=== PATIENT | male | born 1945 | race Caucasian/White ===

== ENCOUNTER 2018-10-10 08:02 | Inpatient (IN) ==
[2018-10-10] MEDS ORDERED: 0.9 % Sodium Chloride 1,000 ML IVC ONE (08:41)
--- NOTE | 2018-10-10 08:45 | Emergency Department Note ---
Disposition Clinical Impression: Weakness, History of lung cancer, History of diarrhea Disposition: Admitted As Inpatient Condition: Good Time of Disposition: 10:34 Weakness HPI - General Chief complaint: ED Weakness Stated complaint: weakness Time Seen by Provider: 10/10/18 08:25 Source: patient, family, EMS Limitations: no limitations Nursing Notes Reviewed: Yes Vital Signs Reviewed: Yes - History of Present Illness HPI Narrative: Mr. Ramirez went to get up today and he did not have strength to get out of bed [facility] His cancer doctor yesterday was also feeling very weak and had 750 ML's of fluids which she tolerated well and felt better temporarily. He has not been eating and drinking well because of no appetite and occasional nausea. He has had diarrhea for about a day and a half no blood in the stool no ill contacts with similar symptoms. His immunotherapy for lung cancer has been postponed at least a week secondary to the symptoms. No fevers no chills no headache no vision change no sore throat no cough no shortness of breath no chest pain no abdominal pain no urinary symptoms no muscle aches. The right leg seems to be a little more weak than the other but this is been the case for several weeks now. No trauma to the leg. No numbness or tingling in any extremity. Pain Scale: 0 Improves with: none Worsens with: none Associated symptoms: Reports: denies other symptoms - Related Data Home Medications Medication Instructions Recorded Confirmed Aspirin [Lo-Dose Aspirin EC] 81 mg PO DAILY 12/07/17 10/10/18 Flaxseed Oil [[place]-3 Flaxseed Oil] 1 cap PO DAILY 12/07/17 10/10/18 Folic Acid [FA-8] 0.8 mg PO DAILY 12/07/17 10/10/18 Garlic 1,000 mg PO DAILY 12/07/17 10/10/18 [place]-3 Fatty Acids [Fish Oil 1,000 mg PO DAILY 12/07/17 10/10/18 Concentrate] Cholecalciferol (D-3) [Vitamin D] 1,000 unit PO DAILY 03/03/18 10/10/18 Losartan [Cozaar] 12.5 mg PO DAILY 09/01/18 10/10/18 Sodium Bicarbonate 650 mg PO DAILY 10/10/18 10/10/18 Previous Rx's Medication Instructions Recorded Promethazine [Phenergan] 25 mg PO Q6HR PRN #30 tablet 12/30/17 Albuterol Sulfate [Albuterol 1 puff IH Q4HR #1 hfa.aer.ad 01/21/18 Inhaler] Magic Mouthwash [Magic Mouthwash 10 ml PO QID PRN #240 ml 07/17/18 BLM] Dronabinol [Marinol] 5 mg PO BID 30 Days #60 capsule 08/17/18 Lactulose 20 gm PO BID #1 bottle 09/18/18 Allergies Allergy/AdvReac Type Severity Reaction Status Date / Time [id number] Reductase Allergy See Verified 09/18/18 09:27 Inhibitor Comments [Statins] All systems ED: reviewed and negative except as stated. Constitutional: Reports: weakness. Denies: fever, chills Eyes: Denies: vision change ENT ED: Denies: throat pain Cardiovascular: Denies: chest pain, dyspnea on exertion Respiratory: Denies: cough, dyspnea Gastrointestinal: Reports: nausea, diarrhea. Denies: abdominal pain, vomiting Genitourinary: Reports: as per HPI Musculoskeletal: Denies: myalgia Integumentary: Denies: rash Neurological: Reports: weakness. Denies: headache, numbness, paresthesias Endocrine: Reports: fatigue Hematological/Lymphatic: Denies: easy bleeding, easy bruising Past Medical History - Past Medical History Attestation: Yes The following information was validated with the patient. Source: patient, nursing notes reviewed Medical history: Reports: cancer, hypertension, myocardial infarction Surgical history: Reports: non-contributory Psychiatric history: Reports: no psych history - Social History Smoking Status: Current some day smoker Smokeless Tobacco Status: No Alcohol use: Reports: none Drug use: Reports: none Physical Exam - General Limitations: no limitations General appearance: alert, in no apparent distress - Head Head exam: atraumatic, normocephalic, normal inspection - Eye Eye exam: Present: normal appearance, PERRL, EOMI. Absent: scleral icterus - ENT ENT exam: normal oropharynx, mucous membranes moist, TM's normal bilaterally, normal external ear exam - Neck Neck exam: Present: normal inspection. Absent: lymphadenopathy - Chest Chest inspection: Present: normal inspection, symmetric chest wall rise - Respiratory Respiratory exam: Present: normal lung sounds bilaterally. Absent: respiratory distress, wheezes, stridor, accessory muscle use - Cardiovascular Cardiovascular exam: Present: normal rhythm, bradycardia, normal heart sounds - Abdominal Exam Abdominal exam: Present: soft, Non-Tender - Extremities Exam Extremities exam: Present: normal inspection. Absent: pedal edema - Neurological Exam Neurological exam: Present: alert, CN II-XII intact, motor sensory deficit (Cooler Man strength and hip flexors bilaterally 4/5 strength) - Psychiatric Psychiatric exam: Present: normal affect, normal mood - Skin Skin exam: Present: warm, dry Course Vital Signs Temperature 98.4 F 10/10/18 08:15 Pulse Rate 46 10/10/18 08:15 Respiratory Rate 15 10/10/18 08:15 Blood Pressure 187/75 10/10/18 08:15 O2 Sat by Pulse Oximetry 96 10/10/18 08:15 Temperature 97.5 F L 10/12/18 07:40 Pulse Rate 45 10/12/18 07:40 Respiratory Rate 14 10/12/18 07:40 Blood Pressure 192/77 10/12/18 07:40 O2 Sat by Pulse Oximetry 96 10/12/18 07:40 Oxygen Delivery Oxygen Delivery Room Air Weakness - MDM Narrative Medical decision making narrative: Weakness. We will do a general workup to identify any lab abnormalities that might explain his symptoms. Further he is rather debilitated and could have a subclinical pneumonia or urinary tract infection. In the meantime we will hydrate him. He is not feeling nauseous at the time of our interview. Case was discussed with oncoming physician at shift change. Disposition forthcoming. I reviewed the previous documentation, talked with the patient and family, reviewed the laboratory studies. I discussed the case with Dr. Arias who is graciously agreed to keep the patient in the hospital - Medical Records Medical records reviewed: Yes I reviewed the patient's medical records. - Lab Data Lab results reviewed: Yes I reviewed the patient's lab results. Result diagrams: 10/11/18 04:29 10/12/18 05:45 Lab Results 10/10/18 10/10/18 10/10/18 Range/Units 09:03 09:03 09:13 WBC 4.1 L (4.3-11.1) K/mcL RBC 3.84 L (4.19-5.50) M/mcL Hgb 12.0 L (12.9-16.9) g/dL Hct 35.0 L (37.5-50.1) % MCV 91.1 (83.0-100.0) fL MCH 31.3 (28.0-33.3) pg MCHC 34.3 (31.6-35.5) g/dL RDW 12.1 (11.5-14.5) % Plt Count 181 (140-400) K/mcL MPV 9.1 L (9.4-12.4) fL Immature Gran % 0.5 (0-4) % Seg Neutrophils % 74.0 % Lymphocytes % 10.6 % Monocytes % 12.8 % Eosinophils % 1.4 % Basophils % 0.7 % Neutrophils # 3.0 (1.6-8.9) K/mcL Lymphocytes # 0.4 L (0.6-4.6) K/mcL Monocytes # 0.5 (0.0-1.3) K/mcL Eosinophils # 0.1 (0.0-0.6) K/mcL Basophils # 0.0 (0.0-0.2) K/mcL Sodium 132 L (136-145) mEq/L Potassium 3.2 L (3.5-5.1) mEq/L Chloride 95 L (98-107) mEq/L Carbon Dioxide 31 H (23-29) mEq/L BUN 9 (8-23) mg/dL Creatinine 0.70 (0.70-1.30) mg/dL Est GFR ( Amer) > 60 (> 60) Est GFR (Non-Af Amer) > 60 (> 60) BUN/Creatinine Ratio 13 (6-26) Glucose 112 H (70-105) mg/dL Calculated Osmolality 273 L (280-300) Calcium 9.4 (8.6-10.3) mg/dL Magnesium 2.1 (1.6-2.6) mg/dL Total Bilirubin 0.8 (0.3-1.0) mg/dL AST 18 (13-39) Units/L ALT 16 (7-52) Units/L Alkaline Phosphatase 72 (34-104) Units/L Troponin I < 0.03 (< 0.04) ng/mL Serum Total Protein 5.9 L (6.4-8.9) g/dL Albumin 4.1 (3.5-5.7) g/dL Globulin 1.8 L (2.4-3.5) g/dL Albumin/Globulin Ratio 2.3 H (1.1-2.2) Urine Color (Yellow) Urine Clarity (Clear) Urine pH (5.0-8.0) pH Units Ur Specific [place] (1.010-1.025) Urine Protein (Neg-Trace) mg/dL Urine Glucose (UA) (Normal) mg/dL Urine Ketones (Negative) mg/dL Urine Blood (Negative) Urine Nitrite (Negative) Urine Bilirubin (Negative) Urine Urobilinogen (Normal) mg/dL Ur Leukocyte Esterase (Negative) Ur Culture Indicated? (NO) 10/10/18 Range/Units 10:13 WBC (4.3-11.1) K/mcL RBC (4.19-5.50) M/mcL Hgb (12.9-16.9) g/dL Hct (37.5-50.1) % MCV (83.0-100.0) fL MCH (28.0-33.3) pg MCHC (31.6-35.5) g/dL RDW (11.5-14.5) % Plt Count (140-400) K/mcL MPV (9.4-12.4) fL Immature Gran % (0-4) % Seg Neutrophils % % Lymphocytes % % Monocytes % % Eosinophils % % Basophils % % Neutrophils # (1.6-8.9) K/mcL Lymphocytes # (0.6-4.6) K/mcL Monocytes # (0.0-1.3) K/mcL Eosinophils # (0.0-0.6) K/mcL Basophils # (0.0-0.2) K/mcL Sodium (136-145) mEq/L Potassium (3.5-5.1) mEq/L Chloride (98-107) mEq/L Carbon Dioxide (23-29) mEq/L BUN (8-23) mg/dL Creatinine (0.70-1.30) mg/dL Est GFR ( Amer) (> 60) Est GFR (Non-Af Amer) (> 60) BUN/Creatinine Ratio (6-26) Glucose (70-105) mg/dL Calculated Osmolality (280-300) Calcium (8.6-10.3) mg/dL Magnesium (1.6-2.6) mg/dL Total Bilirubin (0.3-1.0) mg/dL AST (13-39) Units/L ALT (7-52) Units/L Alkaline Phosphatase (34-104) Units/L Troponin I (< 0.04) ng/mL Serum Total Protein (6.4-8.9) g/dL Albumin (3.5-5.7) g/dL Globulin (2.4-3.5) g/dL Albumin/Globulin Ratio (1.1-2.2) Urine Color Yellow (Yellow) Urine Clarity Clear (Clear) Urine pH 8.5 H (5.0-8.0) pH Units Ur Specific [place] 1.015 (1.010-1.025) Urine Protein Trace (Neg-Trace) mg/dL Urine Glucose (UA) Normal (Normal) mg/dL Urine Ketones Negative (Negative) mg/dL Urine Blood Negative (Negative) Urine Nitrite Negative (Negative) Urine Bilirubin Negative (Negative) Urine Urobilinogen Normal (Normal) mg/dL Ur Leukocyte Esterase Negative (Negative) Ur Culture Indicated? NO (NO) - Radiology Data Radiology results reviewed: Yes I reviewed the patient's radiology results.
[2018-10-10 09:21] LABS: Basophils % 0.7 %; Eosinophils # 0.1 K/mcL (0.0-0.6); Eosinophils % 1.4 %; Immature Granulocytes % 0.5 % (0-4); Lymphocytes # 0.4 K/mcL (0.6-4.6); Lymphocytes % 10.6 %; Mean Corpuscular HGB Conc 34.3 g/dL (31.6-35.5); Mean Corpuscular Hemoglobin 31.3 pg (28.0-33.3); Mean Corpuscular Volume 91.1 fL (83.0-100.0); Mean Platelet Volume 9.1 fL (9.4-12.4); Monocytes # 0.5 K/mcL (0.0-1.3); Monocytes % 12.8 %; Platelet Count 181 K/mcL (140-400); Red Blood Count 3.84 M/mcL (4.19-5.50); Red Cell Distribution Width 12.1 % (11.5-14.5); White Blood Count 4.1 K/mcL (4.3-11.1)
[2018-10-10 09:37] LABS: Alanine Aminotransferase 16 Units/L (7-52); Albumin 4.1 g/dL (3.5-5.7); Albumin/Globulin Ratio 2.3 (1.1-2.2); Alkaline Phosphatase 72 Units/L (34-104); Aspartate Amino Transferase 18 Units/L (13-39); BUN/Creatinine Ratio 13 (6-26); Bilirubin,Total 0.8 mg/dL (0.3-1.0); Blood Urea Nitrogen 9 mg/dL (8-23); Calcium 9.4 mg/dL (8.6-10.3); Carbon Dioxide 31 mEq/L (23-29); Chloride 95 mEq/L (98-107); Globulin 1.8 g/dL (2.4-3.5); Glucose 112 mg/dL (70-105); Magnesium 2.1 mg/dL (1.6-2.6); Osmolality,Calculated 273 (280-300); Potassium 3.2 mEq/L (3.5-5.1); Sodium 132 mEq/L (136-145); Total Protein 5.9 g/dL (6.4-8.9); eGFR For African Americans > 60 (> 60); eGFR For Non-African Americans > 60 (> 60)
[2018-10-10 10:21] LABS: Bilirubin,Urine Negative (Negative); Clarity,Urine Clear (Clear); Color,Urine Yellow (Yellow); Glucose,Urine (UA) Normal (Normal); Ketones,Urine Negative (Negative); Leukocyte Esterase,Urine Negative (Negative); Nitrite,Urine Negative (Negative); PH,Urine 8.5 pH Units (5.0-8.0); Protein,Urine Trace mg/dL (Neg-Trace); Specific Gravity,Urine 1.015 (1.010-1.025); Urobilinogen,Urine Normal (Normal)
[2018-10-10 10:22] LABS: Blood,Urine Negative (Negative)
[2018-10-10] MEDS ORDERED: Naloxone 0.4 MG/ML INJ IVP PRN (11:24)
[2018-10-10] MEDS ORDERED: 0.9 % Sodium Chloride 1,000 ML IVC SCH ×2 (11:24→13:14)
[2018-10-10] MEDS ORDERED: Magic Mouthwash 10 ML UD Cup PO PRN (11:24)
--- NOTE | 2018-10-10 11:34 | Internal Med History&Physical ---
Date of Encounter: 10/10/18 Time of Encounter: 11:31 Assessment and Plan (1) Dehydration Current visit: Yes Status: Acute weakness and mild dehydration , low sodium and K levels overall side effects of immunotherpay as well IV fluids and followup no evideve of infection so far . H/H stable , WBC mildly low afebrile (2) Weakness Current visit: Yes Status: Acute Weakness is generalized Orthostatics and IV fluids and followup . No obvious sign of infection (3) History of lung cancer Current visit: Yes Status: Acute getting Immunotherpay Stage 3 or 4 with mets. Stable at the present time but overall prognosis is poor (4) Hyponatremia Current visit: No Status: Acute (5) HTN (hypertension) Current visit: No Status: Chronic if orthostatic will decrease his meds and followup Qualifiers: Hypertension type: essential hypertension Qualified Code(s): I10 - Essential (primary) hypertension Internal Medicine - H&P: HPI Admitted From: Emergency Dept History of present illness: Mr. 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 he denied any fever or chill ,nausea vomiting , appetite is poor . 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 Psychiatric history: no psych history - Past Surgical History Surgical History: non-contributory Additional surgical history: LEFT FOOT SX, LEFT HIP FX - Social History Smoking Status: Current some day smoker Smokeless Tobacco Status: No Alcohol use: none Drug use: none Internal Medicine - H&P: Meds Aspirin [Lo-Dose Aspirin EC] 81 mg PO DAILY 12/07/17 [History] Flaxseed Oil [[place]-3 Flaxseed Oil] 1 cap PO DAILY 12/07/17 [History] Folic Acid [FA-8] 0.8 mg PO DAILY 12/07/17 [History] Garlic 1,000 mg PO DAILY 12/07/17 [History] [place]-3 Fatty Acids [Fish Oil Concentrate] 1,000 mg PO DAILY 12/07/17 [History] Promethazine [Phenergan] 25 mg PO Q6HR PRN #30 tablet 12/30/17 [Rx] OLANZapine [Zyprexa] 10 mg PO DAILY #28 tablet 01/07/18 [Rx] Albuterol Sulfate [Albuterol Inhaler] 1 puff IH Q4HR #1 hfa.aer.ad 01/21/18 [Rx] Hydrocortisone [Anusol-Hc] 30 gm TP DAILY #6 [email or web address] 01/21/18 [Rx] Cholecalciferol (D-3) [Vitamin D] 1,000 unit PO DAILY 03/03/18 [History] Magic Mouthwash [Magic Mouthwash BLM] 10 ml PO QID PRN #240 ml 07/17/18 [Rx] Dronabinol [Marinol] 5 mg PO BID 30 Days #60 capsule 08/17/18 [Rx] Losartan [Cozaar] 12.5 mg PO DAILY 09/01/18 [History] Lactulose 20 gm PO BID #1 bottle 09/18/18 [Rx] Allergy/AdvReac Type Severity Reaction Status Date / Time [id number]-[id number] Reductase Allergy See Verified 09/18/18 09:27 Inhibitor Comments [Statins] All Systems PM: A 10-system review of systems was performed and is negative for pertinent findings except as documented above in the HPI. - Constitutional Constitutional: fatigue, lethargy, malaise, weakness, no anorexia, no chills, no excessive sweating, no fever(s), no falls, no night sweats, no weight gain, no weight loss - EENT Eyes: no blurry vision, no diplopia, no itchy eyes, no loss of vision, no photophobia, no seeing flashes Nose, mouth and throat: no bleeding gums, no dysphagia, no epistaxis, no facial pain, no mouth lesions, no odynophagia, no post-nasal drip, no sore throat - Cardiovascular Cardiovascular ROS IM: lightheadedness, no chest pain, no claudication, no diaphoresis, no dyspnea, no dyspnea on exertion, no edema, no orthopnea, no palpitations, no paroxysmal nocturnal dyspnea, no syncope - Respiratory Respiratory: no cough, no dyspnea, no hemoptysis, no dyspnea on exertion, no wheezing, no snoring, no stridor, no pain on inspiration, no chest congestion, no excessive phlegm production, no pain with cough - Gastrointestinal Gastrointestinal: constipation, no abdominal pain, no change in bowel habits, no fecal incontinence, no heartburn, no hematemesis, no melena, no nausea, no odynophagia, no tenesmus, no vomiting - Genitourinary Genitourinary ROS male: no difficulty urinating, no flank pain, no nocturia, no urinary frequency, no urinary hesitancy, no urinary incontinence - Musculoskeletal Musculoskeletal ROS IM: no arthralgias, no atrophy, no back pain, no joint swelling, no muscle cramps - Neurological Neurological ROS: weakness, no abnormal gait, no burning sensations, no confusion, no convulsions, no disequilibrium, no dizziness, no focal weakness, no frequent falls, no lack of coordination, no loss of vision, no memory loss, no tremor(s), no vertigo - Constitutional Vitals: Temp Pulse Resp BP Pulse Ox 98.4 F 47 16 192/58 98 10/10/18 08:15 10/10/18 10:17 10/10/18 11:13 10/10/18 11:13 10/10/18 10:17 General appearance: Present: A&O X 3, pleasant, no acute distress, answers questions appropriately - Head Head exam: Present: atraumatic - Eye Eye exam: Present: EOMI, PERRL. Absent: scleral icterus - Neck Neck exam general surgery: Present: full ROM. Absent: lymphadenopathy, tenderness, nuchal rigidity, supple - Respiratory Respiratory exam: Present: CTAB. Absent: accessory muscle use, chest wall tenderness, decreased breath sounds, respiratory distress, rhonchi, stridor, tachypnea Additional comments: mild basal crackles on the left lower lung noted otherwise clear - Cardiovascular Cardiovascular exam: Present: RRR, +S1, +S2. Absent: irregular rhythm, JVD, systolic murmur, tachycardia - GI/Abdominal GI/Abdominal exam: Present: normal bowel sounds, soft. Absent: diminished bowel sounds, distended, guarding, rigid Additional comments: no tenderness on the right upper quadrant - Extremities Exam Extremities exam: Absent: pedal edema, tenderness, warm - Back Exam Back exam: Absent: muscle spasm, normal inspection, rash noted, tenderness, vertebral tenderness - Neurological Exam Neurological exam: Present: CN II-XII intact, oriented X3, no focal deficits, strengths equal and symetr throughout. Absent: pronater drift, facial droop, speech deficit Internal Med - H&P Results - Labs CBC & Chem 7: 10/10/18 09:03 10/10/18 09:03 Labs: Short CBC 10/10/18 Range/Units 09:03 WBC 4.1 L (4.3-11.1) K/mcL Hgb 12.0 L (12.9-16.9) g/dL Hct 35.0 L (37.5-50.1) % Plt Count 181 (140-400) K/mcL Neutrophils # 3.0 (1.6-8.9) K/mcL BMP 10/10/18 09:03 Sodium 132 L Potassium 3.2 L Chloride 95 L Carbon Dioxide 31 H BUN 9 Creatinine 0.70 Glucose 112 H Calcium 9.4 Cardiac Enzymes 10/10/18 Range/Units 09:13 Troponin I < 0.03 (< 0.04) ng/mL Liver Function 10/10/18 Range/Units 09:03 Total Bilirubin 0.8 (0.3-1.0) mg/dL AST 18 (13-39) Units/L ALT 16 (7-52) Units/L Alkaline Phosphatase 72 (34-104) Units/L Albumin 4.1 (3.5-5.7) g/dL Urine 10/10/18 Range/Units 10:13 Urine Color Yellow (Yellow) Urine Clarity Clear (Clear) Urine pH 8.5 H (5.0-8.0) pH Units Ur Specific [place] 1.015 (1.010-1.025) Urine Protein Trace (Neg-Trace) mg/dL Urine Glucose (UA) Normal (Normal) mg/dL - Impressions ITS Impressions Chest X-Ray 10/10/18 08:42 IMPRESSION: No acute process. D/ / Óscar Loaiza DO / Óscar Loaiza DO Interpreting Provider: Óscar Loaiza DO
[2018-10-10] MEDS: Aspirin Enteric Coated 81 MG Tablet PO SCH (13:24)
[2018-10-10] MEDS: Lactulose Oral Soln 20 GM/30 ML UDC PO SCH (21:09)
[2018-10-11 04:59] LABS: Basophils % 0.6 %; Eosinophils # 0.1 K/mcL (0.0-0.6); Eosinophils % 1.2 %; Hematocrit 30.9 % (37.5-50.1); Hemoglobin 11.1 g/dL (12.9-16.9); Immature Granulocytes % 0.4 % (0-4); Lymphocytes # 0.6 K/mcL (0.6-4.6); Lymphocytes % 12.8 %; Mean Corpuscular HGB Conc 35.9 g/dL (31.6-35.5); Monocytes # 0.6 K/mcL (0.0-1.3); Monocytes % 12.2 %; Neutrophils # 3.6 K/mcL (1.6-8.9); Platelet Count 155 K/mcL (140-400); Red Blood Count 3.47 M/mcL (4.19-5.50); Red Cell Distribution Width 11.9 % (11.5-14.5); Segmented Neutrophils % 72.8 %; White Blood Count 4.9 K/mcL (4.3-11.1)
[2018-10-11 05:16] LABS: BUN/Creatinine Ratio 14 (6-26); Blood Urea Nitrogen 7 mg/dL (8-23); Calcium 8.7 mg/dL (8.6-10.3); Carbon Dioxide 26 mEq/L (23-29); Chloride 98 mEq/L (98-107); Glucose 105 mg/dL (70-105); Osmolality,Calculated 268 (280-300); Potassium 2.8 mEq/L (3.5-5.1); Sodium 130 mEq/L (136-145); eGFR For African Americans > 60 (> 60); eGFR For Non-African Americans > 60 (> 60)
[2018-10-11] MEDS: Aspirin Enteric Coated 81 MG Tablet PO SCH (07:55)
[2018-10-11] MEDS: Lactulose Oral Soln 20 GM/30 ML UDC PO SCH ×2 (07:55→20:11)
[2018-10-11] MEDS: Folic Acid 1 MG TABLET PO SCH (07:55)
[2018-10-11] MEDS: Cholecalciferol (D-3) 1,000 UNIT (25MCG) TABLET PO SCH (07:55)
[2018-10-11] MEDS: FISH OIL 1000 MG PO SCH (07:56)
[2018-10-11] MEDS: [UNRECOGNIZED DRUG - OTHER] PO SCH (07:56)
[2018-10-11] MEDS: GARLIC 1000 MG PO SCH (07:56)
[2018-10-11] MEDS ORDERED: OLANZapine 5 MG TAB.RAPDIS PO SCH (09:00)
[2018-10-11] MEDS ORDERED: Aspirin Enteric Coated 81 MG Tablet PO SCH (09:00)
[2018-10-11] MEDS ORDERED: Hydrocortisone Rectal 2.5% CRM 28 GM TUBE RC SCH (09:00)
--- NOTE | 2018-10-11 09:12 | Internal Med Progress Note ---
Date of Encounter: 10/11/18 Time of Encounter: 09:07 - Assessment and plan (1) Dehydration Current Visit: Yes Status: Acute Assessment and plan: stable eating and drinking his fluids . He received few liters during his admission time . now encouring him to drink fluids but we have to keep check on his fluids as he also has hx of SIADH with low sodium . (2) Weakness Current Visit: Yes Status: Acute Assessment and plan: Cause of his weakness and fatigue is not clearly known however this could be due to his immunotherpay . His K level si also low which could also add to his wekaness. Will order Mg levels and supplement his K no evidence of infection, H/H is low but doesn't explain his weakness. (3) History of lung cancer Current Visit: Yes Status: Acute Assessment and plan: On immuntherpay follows with Oncology and further assessment and investigation for tumor response by Oncology . Overall prognosis is poor , t is still full code , Consideration be given to address his code status (4) Hyponatremia Current Visit: No Status: Acute Assessment and plan: He has hx f SIADH , will need to follow May need his fluid to be restricted labs ordered and pending (5) HTN (hypertension) Current Visit: No Status: Chronic Assessment and plan: stable adjust his meds as needed Qualifiers: Hypertension type: essential hypertension Qualified Code(s): I10 - Essential (primary) hypertension (6) Hypokalemia Current Visit: No Status: Acute Assessment and plan: K levels noted to be low , increase potassium foods, KCL 20 mecq bid for few days and follow up Mg levels ordered as well . - Subjective Interval history: No new change . feels almost the same excpet that he feels little more strength no fever or chills nausea vomiting or any other complains . He was noted to have more then 290 cc urine retention on bladder Scan ,no difficulty in urination but has some frequency. .His pulse is also noted to be slightly on the lower side no chest pain. He is Ipilimumb and Nivolumab for his metastatic lung cancer. N pain at the present time . - Constitutional Vitals: Temp Pulse Resp BP Pulse Ox 97.6 F 58 20 197/85 94 10/11/18 07:24 10/11/18 07:24 10/11/18 07:24 10/11/18 07:24 10/11/18 07:24 General appearance: Present: A&O X 3, pleasant, no acute distress, loss of weight, answers questions appropriately - Head Head exam: Present: atraumatic - Eye Eye exam: Present: EOMI, PERRL. Absent: scleral icterus Pupils: Present: PERRL - Neck Neck exam general surgery: Present: supple. Absent: tenderness, nuchal rigidity - Respiratory Respiratory exam: Present: CTAB. Absent: chest wall tenderness, rales, respiratory distress, stridor, wheezes, tachypnea - Cardiovascular Cardiovascular exam: Present: RRR, +S1, +S2. Absent: irregular rhythm, JVD - GI/Abdominal GI/Abdominal exam: Present: normal bowel sounds, soft. Absent: distended, firm, guarding, hyperactive bowel sounds, hypoactive bowel sounds, rebound, rigid, no peritoneal signs - Extremities Exam Extremities exam: Absent: calf tenderness, pedal edema, tenderness - Neurological Exam Neurological exam: Present: CN II-XII intact, oriented X3, strengths equal and symetr throughout. Absent: facial droop, speech deficit Internal Medicine: Result - Labs CBC & Chem 7: 10/11/18 04:29 10/11/18 04:29 Labs: Short CBC 10/10/18 10/11/18 Range/Units 09:03 04:29 WBC 4.1 L 4.9 (4.3-11.1) K/mcL Hgb 12.0 L 11.1 L (12.9-16.9) g/dL Hct 35.0 L 30.9 L (37.5-50.1) % Plt Count 181 155 (140-400) K/mcL Neutrophils # 3.0 3.6 (1.6-8.9) K/mcL BMP 10/10/18 10/11/18 09:03 04:29 Sodium 132 L 130 L Potassium 3.2 L 2.8 L Chloride 95 L 98 Carbon Dioxide 31 H 26 BUN 9 7 L Creatinine 0.70 0.51 L Glucose 112 H 105 Calcium 9.4 8.7 Cardiac Enzymes 10/10/18 Range/Units 09:13 Troponin I < 0.03 (< 0.04) ng/mL Liver Function 10/10/18 Range/Units 09:03 Total Bilirubin 0.8 (0.3-1.0) mg/dL AST 18 (13-39) Units/L ALT 16 (7-52) Units/L Alkaline Phosphatase 72 (34-104) Units/L Albumin 4.1 (3.5-5.7) g/dL Urine 10/10/18 Range/Units 10:13 Urine Color Yellow (Yellow) Urine Clarity Clear (Clear) Urine pH 8.5 H (5.0-8.0) pH Units Ur Specific [place] 1.015 (1.010-1.025) Urine Protein Trace (Neg-Trace) mg/dL Urine Glucose (UA) Normal (Normal) mg/dL - VTE Documentation of Mechanical Device: Graduated compression elastic hosiery Consult Discharge Plan - Plan Referrals: Brennan Dinh MD [Primary Care Provider] -
[2018-10-11] MEDS: Acetaminophen 325 MG TABLET PO PRN (17:59)
[2018-10-11] MEDS: cloNIDine HCl 0.1 MG TABLET PO PRN (20:11)
[2018-10-12] MEDS: cloNIDine HCl 0.1 MG TABLET PO PRN ×2 (04:20→15:34)
[2018-10-12] MEDS ORDERED: hydrALAZINE 25 MG TABLET PO ONE (05:00)
[2018-10-12 06:04] LABS: BUN/Creatinine Ratio 20 (6-26); Blood Urea Nitrogen 10 mg/dL (8-23); Calcium 8.7 mg/dL (8.6-10.3); Carbon Dioxide 27 mEq/L (23-29); Chloride 94 mEq/L (98-107); Glucose 122 mg/dL (70-105); Osmolality,Calculated 262 (280-300); Potassium 3.4 mEq/L (3.5-5.1); Sodium 126 mEq/L (136-145); eGFR For African Americans > 60 (> 60); eGFR For Non-African Americans > 60 (> 60)
--- NOTE | 2018-10-12 07:29 | Internal Med Progress Note ---
Date of Encounter: 10/13/18 Time of Encounter: 07:08 - Assessment and plan (1) Weakness Current Visit: Yes Status: Acute Assessment and plan: Extreme weakness and inability to walk. I suspect this is related to his treatments for his lung cancer. He is unable to safely return to home at this time. We will admit him for observation. PT and OT will evaluate patient for therapies as well as safe transfers and ADLs. We need to avoid secondary problems such as pneumonia, UTI, skin breakdown, muscle atrophy etc. (2) Low TSH level Current Visit: Yes Status: Acute Assessment and plan: TSH is low for some reason and thyroxine/free T4 has been ordered to evaluate further (3) Dehydration Current Visit: Yes Status: Acute Assessment and plan: When he was admitted he is felt to be dehydrated. He had IV fluids in the ER as well as over the weekend. Will need to reinitiate if he is not taking orally appropriately. (4) History of lung cancer Current Visit: Yes Status: Acute Assessment and plan: History of lung cancer undergoing treatment by Dr. 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 We will have a fluid restriction of 1000 mL of fluids. (6) HTN (hypertension) Current Visit: Yes Status: Acute Assessment and plan: Physical denies blood pressure was in the 200 systolic range and required clonidine. We will monitor. Dr. Arias had increased his losartan over the weekend. Continue to monitor and try to avoid hypotension as well. When he is eventually ambulatory we will need to check orthostatic blood pressures. Qualifiers: Hypertension type: essential hypertension Qualified Code(s): I10 - Essential (primary) hypertension (7) CAD (coronary artery disease) Current Visit: No Status: Chronic Assessment and plan: No angina or CHF. Qualifiers: Coronary Disease-Associated Artery/Lesion type: [place] artery [place] vs. transplanted heart: [place] heart Associated angina: without angina Qualified Code(s): I25.10 - Atherosclerotic heart disease of [place] coronary artery without angina pectoris (8) Hypokalemia Current Visit: Yes Status: Acute Assessment and plan: His potassium dose was increased. We will continue to monitor. (9) DVT prophylaxis Current Visit: Yes Status: Acute Assessment and plan: Right now he is very sedentary/bedridden. Lovenox will be given to prevent DVT - Subjective Interval history: Patient is a poor historian and reports that he does not remember things well. He thinks he has been here for a week or 2, it has been 2 days. He denies any chest pain, palpitations, dyspnea, abdominal pain, nausea or pain. Biggest complaint is "my legs will not work". His arrived during rounds. She states that she has seen a decline in him since his radiation treatments, and sudden change last week. He was seen in oncology on Friday and given IV fluids but worsened over the weekend and came in via squad to the ER for extreme weakness. He has had poor appetite, has gone from walking with his walker and assistance to inability to stand. She states that he will eat [employer] but otherwise has a poor appetite. He has had increase in his memory failure as well. No fevers or chills at home. - Constitutional Vitals: Temp Pulse Resp BP Pulse Ox 97.2 F L 44 14 158/70 95 10/12/18 04:00 10/12/18 05:55 10/12/18 04:00 10/12/18 05:55 10/12/18 04:00 General appearance: Present: cachectic, A&O X 2 (He knows where he is, he knew my name. He thought he had been in the hospital for 2 weeks. He did not know the day of the week), pleasant, no acute distress, loss of weight - Respiratory Respiratory exam: Present: CTAB - Cardiovascular Cardiovascular exam: Present: RRR, +S1, +S2 - GI/Abdominal GI/Abdominal exam: Present: soft. Absent: hepatomegaly, mass, splenomegaly, tenderness - Extremities Exam Extremities exam: Absent: calf tenderness, pedal edema, tenderness - Neurological Exam Additional comments: Extremely fatigued. He was able to sit himself forward during the examination. He can move his lower extremities in bed. I did not try to evaluate his standing or gait. Internal Medicine: Result - Labs CBC & Chem 7: 10/13/18 05:25 10/13/18 05:25 Labs: BMP 10/12/18 05:45 Sodium 126 L Potassium 3.4 L Chloride 94 L Carbon Dioxide 27 BUN 10 Creatinine 0.50 L Glucose 122 H Calcium 8.7 His sodium is dropped 126 and potassium is still low at 3.4. Blood cultures are still negative. TSH is low and I have ordered free T4 - VTE Documentation of Mechanical Device: Graduated compression elastic hosiery Consult Discharge Plan - Plan Referrals: Brennan Dinh MD [Primary Care Provider] -
[2018-10-12] MEDS: Folic Acid 1 MG TABLET PO SCH (09:58)
[2018-10-12] MEDS: Aspirin Enteric Coated 81 MG Tablet PO SCH (09:58)
[2018-10-12] MEDS: FISH OIL 1000 MG PO SCH (09:58)
[2018-10-12] MEDS: GARLIC 1000 MG PO SCH (09:58)
[2018-10-12] MEDS: Cholecalciferol (D-3) 1,000 UNIT (25MCG) TABLET PO SCH (09:58)
[2018-10-12] MEDS: Lactulose Oral Soln 20 GM/30 ML UDC PO SCH ×2 (09:58→21:21)
[2018-10-12] MEDS: [UNRECOGNIZED DRUG - OTHER] PO SCH (09:58)
--- NOTE | 2018-10-12 20:05 | Event Note ---
Date of Encounter: 10/12/18 Time of Encounter: 19:41 His blood pressure has been elevated the day sometimes it is at 200 systolic range. He gets the clonidine on a "prn" basis. I would like to make it routine with prn for breakthrough. Hydralazine was effective this morning and we will give this routinely as well. Tonight he had a headache but it is not going away. He eats a few bites of his meals, he has had over a pitcher of water, he has had a container of [employer] Breakfast and family is going for a milkshake for him. We are trying to avoid IV fluids because of his history of SIADH/hyponatremia.
[2018-10-12] MEDS: cloNIDine HCl 0.1 MG TABLET PO SCH (21:21)
[2018-10-13] MEDS: hydrALAZINE 25 MG TABLET PO SCH ×4 (00:01→23:44)
[2018-10-13] MEDS: cloNIDine HCl 0.1 MG TABLET PO PRN (00:54)
[2018-10-13] MEDS ORDERED: hydrALAZINE 25 MG TABLET PO ONE (04:20)
[2018-10-13] MEDS: *HR* Enoxaparin 40 MG/0.4 ML SYRINGE SQ SCH (04:25)
[2018-10-13 05:34] LABS: Basophils % 0.2 %; Eosinophils % 0.4 %; Hematocrit 32.2 % (37.5-50.1); Hemoglobin 11.6 g/dL (12.9-16.9); Immature Granulocytes % 0.5 % (0-4); Lymphocytes # 0.5 K/mcL (0.6-4.6); Lymphocytes % 4.7 %; Mean Corpuscular Hemoglobin 31.8 pg (28.0-33.3); Mean Corpuscular Volume 88.2 fL (83.0-100.0); Mean Platelet Volume 9.1 fL (9.4-12.4); Monocytes # 0.9 K/mcL (0.0-1.3); Monocytes % 9.2 %; Neutrophils # 8.5 K/mcL (1.6-8.9); Platelet Count 149 K/mcL (140-400); Red Blood Count 3.65 M/mcL (4.19-5.50); Red Cell Distribution Width 11.9 % (11.5-14.5)
[2018-10-13] MEDS ORDERED: cloNIDine HCl 0.1 MG TABLET PO ONE (05:43)
[2018-10-13 05:49] LABS: BUN/Creatinine Ratio 18 (6-26); Blood Urea Nitrogen 9 mg/dL (8-23); Calcium 8.8 mg/dL (8.6-10.3); Carbon Dioxide 26 mEq/L (23-29); Chloride 95 mEq/L (98-107); Glucose 132 mg/dL (70-105); Osmolality,Calculated 263 (280-300); Potassium 3.6 mEq/L (3.5-5.1); Sodium 126 mEq/L (136-145); eGFR For African Americans > 60 (> 60); eGFR For Non-African Americans > 60 (> 60)
--- NOTE | 2018-10-13 08:40 | Internal Med Progress Note ---
Date of Encounter: 10/13/18 Time of Encounter: 08:39 - Assessment and plan (1) Weakness Current Visit: Yes Status: Acute Assessment and plan: Continued extreme weakness and inability to stand or perform usual ADLs, I still feel that this is related to his cancer treatment regimen. I will speak with Dr. Acosta and get his advice. On top of that, he is now going to be sleepy because of frequent awakening to the night regarding checking his blood pressure, and also multiple doses of clonidine likely contributes to this. I anticipate he will be too weak to really take in adequate food and fluids and I will give him gentle IV fluids. (2) Low TSH level Current Visit: Yes Status: Acute (3) Dehydration Current Visit: Yes Status: Acute Assessment and plan: When he was admitted he had "dehydration". I anticipate he will not be eating and drinking well today. So despite having hyponatremia, I am going to give him fluids to try to stay ahead of his fluid status. He is likely not going to be eating and drinking well today because of sleepiness (4) History of lung cancer Current Visit: Yes Status: Acute (5) Hyponatremia Current Visit: Yes Status: Acute Assessment and plan: history of SIADH related to his lung cancer. Sodium 126 and stable. He will be receiving IV fluids today. (6) HTN (hypertension) Current Visit: Yes Status: Acute Assessment and plan: We have had difficulties getting his blood pressure under 200 systolic. Now I believe we may have pushed the clonidine and hydralazine to the point where now he is sleepy. Will add amlodipine. I am trying to avoid diuretics because of SIADH/hyponatremia. I am not sure the etiology of why his pressure has spiked. I will check with Dr. Acosta regarding possible side effects from his chemotherapy. I may need to check with nephrology as well if current regimen is not successful . The goal is to get the blood pressure down slowly and safely over the next few days. Unfortunately, nursing staff gets alarmed and pushes to get it better faster Qualifiers: Hypertension type: essential hypertension Qualified Code(s): I10 - Essential (primary) hypertension (7) CAD (coronary artery disease) Current Visit: No Status: Chronic Assessment and plan: No angina or CHF. Qualifiers: Coronary Disease-Associated Artery/Lesion type: [place] artery [place] vs. transplanted heart: [place] heart Associated angina: without angina Qualified Code(s): I25.10 - Atherosclerotic heart disease of [place] coronary artery without angina pectoris (8) Hypokalemia Current Visit: Yes Status: Resolved (9) DVT prophylaxis Current Visit: Yes Status: Acute - Subjective Interval history: Patient is very sleepy this morning. He denies any chest pain, palpitations, dyspnea, abdominal pain, or any pain at all. His is been feeding him oatmeal, bites of toast and some milk. She reports she is very sleepy. Patient did void on his own a small amount of dark urine. The denies blood pressure still elevated. He has received multiple clonidine doses as well as hydralazine. His pressure was still elevated in the 200 systolic range and amlodipine was started this morning. His blood pressure is in the 170s systolic now. - Constitutional Vitals: Temp Pulse Resp BP Pulse Ox 97.3 F L 51 16 176/76 95 10/13/18 08:27 10/13/18 08:27 10/13/18 08:27 10/13/18 08:27 10/13/18 08:27 General appearance: Present: cachectic, A&O X 2 (He knows where he is, he knew my name. He thought he had been in the hospital for 2 weeks. He did not know the day of the week), pleasant, no acute distress, loss of weight Exam: Patient is very sleepy this morning. He does awaken, speaks a bit with me, but easily falls back to sleep - Respiratory Respiratory exam: Present: CTAB. Absent: respiratory distress Additional comments: Slight crackles on the right side. - GI/Abdominal GI/Abdominal exam: Present: soft. Absent: mass, tenderness - Extremities Exam Extremities exam: Absent: calf tenderness, pedal edema, tenderness - Neurological Exam Additional comments: Very sleepy this morning. He awakens, he can have conversation, he is able to eat, no unilateral focal deficit Internal Medicine: Result - Labs CBC & Chem 7: 10/13/18 05:25 10/13/18 05:25 Labs: Short CBC 10/13/18 Range/Units 05:25 WBC 10.0 D (4.3-11.1) K/mcL Hgb 11.6 L (12.9-16.9) g/dL Hct 32.2 L (37.5-50.1) % Plt Count 149 (140-400) K/mcL Neutrophils # 8.5 (1.6-8.9) K/mcL BMP 10/13/18 05:25 Sodium 126 L Potassium 3.6 Chloride 95 L Carbon Dioxide 26 BUN 9 Creatinine 0.50 L Glucose 132 H Calcium 8.8 Labs have been reviewed. White count is still normal. Sodium is stable 126. Potassium normal 3.6. Renal function is normal. BUN normal - VTE Documentation of Mechanical Device: Graduated compression elastic hosiery Consult Discharge Plan - Plan Referrals: Brennan Dinh MD [Primary Care Provider] -
[2018-10-13] MEDS: Cholecalciferol (D-3) 1,000 UNIT (25MCG) TABLET PO SCH (09:22)
[2018-10-13] MEDS: Folic Acid 1 MG TABLET PO SCH (09:22)
[2018-10-13] MEDS: Aspirin Enteric Coated 81 MG Tablet PO SCH (09:22)
[2018-10-13] MEDS: cloNIDine HCl 0.1 MG TABLET PO SCH (09:22)
[2018-10-13] MEDS: amLODIPine 5 MG TABLET PO SCH (09:22)
[2018-10-13] MEDS: [UNRECOGNIZED DRUG - OTHER] PO SCH (09:23)
[2018-10-13] MEDS: GARLIC 1000 MG PO SCH (09:23)
[2018-10-13] MEDS: FISH OIL 1000 MG PO SCH (09:23)
[2018-10-13] MEDS: Lactulose Oral Soln 20 GM/30 ML UDC PO SCH ×2 (09:23→21:38)
[2018-10-13] MEDS: 0.9 % Sodium Chloride 1,000 ML IVC SCH ×2 (11:36→21:58)
[2018-10-13] MEDS: Acetaminophen 325 MG TABLET PO PRN ×2 (13:07→21:42)
[2018-10-13] MEDS ORDERED: Isovue-370 500 ML BOTTLE IVP ONE ×3 (14:08→14:31)
--- NOTE | 2018-10-13 14:18 | Event Note ---
Date of Encounter: 10/13/18 Time of Encounter: 14:[address] Acosta, patient's oncologist, who was very helpful in delineating a plan for this patient. #1. The low TSH and elevated free T4 may be secondary to his immunotherapy. At this point the hyperthyroidism is not significant enough to initiate treatment. #2. No specific oncologic reason for elevated blood pressure #3. He spoke about concern that the weakness may be from the immunotherapy as a side effect versus worsening of his disease. He suggested reimaging with CT of head with contrast (if MRI not available), CT of chest with contrast, CT of abdomen with IV and oral contrast. #4. Depending on those results, he can make himself available to manage this pa tient as an inpatient at [facility] later this week if he is not able to do so as an outpatient.
[2018-10-13] MEDS ORDERED: Isovue-370 500 ML BOTTLE PO ONE (14:31)
--- NOTE | 2018-10-13 20:10 | Event Note ---
Date of Encounter: 10/13/18 Time of Encounter: 20:08 Patient underwent reimaging today. The liver has new and expanding mets. Mesenteric lymphadenopathy noted also. I discussed the findings with the family and patient. I told them I talked with Dr. Acosta today as well. I suggested that we speak with him tomorrow morning after he has a chance to review the films and help the patient with deciding the options. I also arranged for a psychologist to meet with the patient and his tomorrow
[2018-10-13] MEDS ORDERED: levoFLOXacin 750 MG/150 ML 750 MG/150 ML BAG IVPB SCH (22:15)
[2018-10-14] MEDS: *HR* Enoxaparin 40 MG/0.4 ML SYRINGE SQ SCH (05:34)
[2018-10-14 05:47] LABS: Basophils % 0.1 %; Eosinophils % 0.4 %; Immature Granulocytes % 0.4 % (0-4); Lymphocytes # 0.4 K/mcL (0.6-4.6); Lymphocytes % 4.4 %; Mean Corpuscular HGB Conc 35.5 g/dL (31.6-35.5); Mean Corpuscular Hemoglobin 31.3 pg (28.0-33.3); Mean Corpuscular Volume 88.3 fL (83.0-100.0); Mean Platelet Volume 9.3 fL (9.4-12.4); Monocytes # 0.7 K/mcL (0.0-1.3); Monocytes % 8.5 %; Neutrophils # 7.3 K/mcL (1.6-8.9); Platelet Count 139 K/mcL (140-400); Red Blood Count 3.51 M/mcL (4.19-5.50); Segmented Neutrophils % 86.2 %; White Blood Count 8.5 K/mcL (4.3-11.1)
[2018-10-14 06:03] LABS: Alanine Aminotransferase 21 Units/L (7-52); Albumin 3.4 g/dL (3.5-5.7); Albumin/Globulin Ratio 1.8 (1.1-2.2); Alkaline Phosphatase 78 Units/L (34-104); Aspartate Amino Transferase 17 Units/L (13-39); BUN/Creatinine Ratio 23 (6-26); Bilirubin,Total 1.2 mg/dL (0.3-1.0); Blood Urea Nitrogen 11 mg/dL (8-23); Calcium 8.7 mg/dL (8.6-10.3); Carbon Dioxide 23 mEq/L (23-29); Chloride 94 mEq/L (98-107); Globulin 1.9 g/dL (2.4-3.5); Glucose 125 mg/dL (70-105); Osmolality,Calculated 259 (280-300); Potassium 3.8 mEq/L (3.5-5.1); Sodium 124 mEq/L (136-145); Total Protein 5.3 g/dL (6.4-8.9); eGFR For African Americans > 60 (> 60); eGFR For Non-African Americans > 60 (> 60)
[2018-10-14] MEDS: amLODIPine 5 MG TABLET PO SCH (08:58)
[2018-10-14] MEDS: Cholecalciferol (D-3) 1,000 UNIT (25MCG) TABLET PO SCH (08:59)
[2018-10-14] MEDS: Aspirin Enteric Coated 81 MG Tablet PO SCH (08:59)
[2018-10-14] MEDS: Folic Acid 1 MG TABLET PO SCH (09:00)
[2018-10-14] MEDS: [UNRECOGNIZED DRUG - OTHER] PO SCH (09:00)
[2018-10-14] MEDS: hydrALAZINE 25 MG TABLET PO SCH (09:00)
[2018-10-14] MEDS: Lactulose Oral Soln 20 GM/30 ML UDC PO SCH (09:00)
[2018-10-14] MEDS: GARLIC 1000 MG PO SCH (09:00)
[2018-10-14] MEDS: FISH OIL 1000 MG PO SCH (09:00)
--- NOTE | 2018-10-14 09:02 | Discharge Summary ---
- NOTES TO OUTPATIENT PROVIDER Notes to Outpatient Provider: #1. History of metastatic squamous cell carcinoma. Admitted with weakness and found to have new metastasis to the liver and pneumonia was found on CT scan of the chest. His oncologist, Dr. Acosta, once transferred to [facility] so he can pursue further treatment. #2. Patient had blood pressure spikes to 200 systolic range during this stay requiring multiple medications. Now improved in the 150s to 160s with a regimen of amlodipine, losartan, hydralazine. #3. Hyponatremia, likely SIADH which he has had previously with this cancer. #4. "Occult pneumonia" that was not heard nor seen on chest x-ray but was found on CT scan yesterday. Levaquin was initiated. Now having cough and auscultation signs consistent with pneumonia. 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 It was thought that it was due to his immunotherapy treatment that was 3 weeks earlier. Except for elevated blood p ressure, hyponatremia there is no focus of infection or other acute problem at that time. However, with CT scan reimaging he has new liver lesions, growing liver lesions as well as lymphadenopathy in the mesentery and the worsening cancer is likely source of his sudden decline. He has agree that he wants to pursue treatment. Dr. Acosta wishes for have him transferred to [facility] so he can initiate further treatment. Incidental finding on CT of the chest was an occult pneumonia that was not seen on chest x-ray or heard on auscultation. Until the day he had no pulmonary symptoms. He now has cough and sputum production and crackles heard on examination. White blood cell count is normal. Levaquin was initiated last night. (2) Weakness Priority: Secondary Status: Acute Comments: Severe profound weakness, anorexia and inability to walk likely due to previous immunotherapy treatment as well as worsening cancer. He cannot be discharged to home for outpatient therapy. Supportive care, nursing home, and will be undergoing further treatment for his cancer at [facility]. (3) Right upper lobe pneumonia Priority: Secondary Status: Acute Comments: Patient did not have any pulmonary symptoms and a normal chest x-ray on admission. No fever or leukocytosis or hypoxia. However, with 3 imaging of his lungs occult pneumonia was found in the right upper lobe. Levaquin was started. Today he has developed cough, congestion, some sputum production and crackles heard in the right lung field posteriorly. This likely occurred prior to admission. This could be postobstructive. No further evaluation initiated here as he is being transferred to [facility] today. Qualifiers: Pneumonia type: due to unspecified organism Qualified Code(s): J18.1 - Lobar pneumonia, unspecified organism (4) Low TSH level Priority: Secondary Status: Acute Comments: TSH was low on admission, treated T4 is elevated mildly. He has not had any hyperthyroid symptoms. 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 No treatment for this planned at the present time. (5) Dehydration Priority: Secondary Status: Acute Comments: patient has had poor oral intake. He is only able to eat a few bites at a time. IV fluids has been initiated for support. Renal function is normal (6) History of lung cancer Priority: Secondary (As above.) Status: Acute (7) Hyponatremia Priority: Secondary Status: Acute Comments: Hyponatremia secondary to SIADH related to his lung cancer. His sodium is down to 124 today. He had been on oral fluid restriction, but with poor oral intake IV fluids was initiated. He will be going to [facility] for treatment of his cancer. (8) HTN (hypertension) Priority: Secondary Status: Acute Comments: During this hospital stay he had accelerated hypertension with systolic pressures in the 200 range. He was placed on clonidine for as needed use. He kept breaking through that and losartan was increased, amlodipine was added as well as hydralazine. Now his blood pressures are in the 150-160 systolic range. He has no symptoms with this. He has not required any clonidine recently. Qualifiers: Hypertension type: essential hypertension Qualified Code(s): I10 - Essential (primary) hypertension (9) CAD (coronary artery disease) Priority: Secondary Status: Chronic Comments: No angina or CHF noted. Qualifiers: Coronary Disease-Associated Artery/Lesion type: [place] artery [place] vs. transplanted heart: [place] heart Associated angina: without angina Qualified Code(s): I25.10 - Atherosclerotic heart disease of [place] coronary artery without angina pectoris (10) Hypokalemia Priority: Secondary Status: Resolved (11) DVT prophylaxis Priority: Secondary Status: Acute Comments: Patient received Lovenox for DVT prophylaxis. Hospital course: Mr. Ramirez is a 73 year old male with known history of metastatic small cell carcinoma of the left lung was admitted to our facility with weakness, inability to walk, anorexia. Ultimately it was found that his cancer is worsening, new and worsening metastases to his liver and will be transferred to [facility] for further treatment by Dr. Acosta. Please see the diagnoses above. - Time Spent with Patient Total time spent providing and/or coordinating discharge services: - Discharge Medications Prescriptions: New 0.9 % Sodium Chloride 100 ml IVC .Q10H ivbag Losartan [Cozaar] 100 mg PO DAILY tablet Tamsulosin [Flomax] 0.8 mg PO HS capsule hydrALAZINE [HydrALAZINE] 25 mg PO Q8HR tablet Levofloxacin 750 MG/150 ML [Levaquin Premix 750mg/150 mL] 750 mg IVPB DAILY #7 bag Enoxaparin [Lovenox] 40 mg SQ 0600 syringe amLODIPine [Norvasc] 10 mg PO DAILY tablet Potassium Chloride 20 meq PO BID tab.er.prt Acetaminophen [Tylenol] 650 mg PO Q4HR PRN tablet PRN Reason: Mild Pain Continued Promethazine [Phenergan] 25 mg PO Q6HR PRN #30 tablet PRN Reason: Nausea Albuterol Sulfate [Albuterol Inhaler] 1 puff IH Q4HR #1 hfa.aer.ad Cholecalciferol (D-3) [Vitamin D] 1,000 unit PO DAILY Magic Mouthwash [Magic Mouthwash BLM] 10 ml PO QID PRN #240 ml PRN Reason: Sore swallowing Dronabinol [Marinol] 5 mg PO BID 30 Days #60 capsule Lactulose 20 gm PO BID #1 bottle Flaxseed Oil [[place]-3 Flaxseed Oil] 1 cap PO DAILY [place]-3 Fatty Acids [Fish Oil Concentrate] 1,000 mg PO DAILY Folic Acid [FA-8] 0.8 mg PO DAILY Aspirin [Lo-Dose Aspirin EC] 81 mg PO DAILY Garlic 1,000 mg PO DAILY Sodium Bicarbonate 650 mg PO DAILY Discontinued Losartan [Cozaar] 12.5 mg PO DAILY Home Medications: Aspirin [Lo-Dose Aspirin EC] 81 mg PO DAILY 12/07/17 [History] Flaxseed Oil [[place]-3 Flaxseed Oil] 1 cap PO DAILY 12/07/17 [History] Folic Acid [FA-8] 0.8 mg PO DAILY 12/07/17 [History] Garlic 1,000 mg PO DAILY 12/07/17 [History] [place]-3 Fatty Acids [Fish Oil Concentrate] 1,000 mg PO DAILY 12/07/17 [History] Promethazine [Phenergan] 25 mg PO Q6HR PRN #30 tablet 12/30/17 [Rx] Albuterol Sulfate [Albuterol Inhaler] 1 puff IH Q4HR #1 hfa.aer.ad 01/21/18 [Rx] Cholecalciferol (D-3) [Vitamin D] 1,000 unit PO DAILY 03/03/18 [History] Magic Mouthwash [Magic Mouthwash BLM] 10 ml PO QID PRN #240 ml 07/17/18 [Rx] Dronabinol [Marinol] 5 mg PO BID 30 Days #60 capsule 08/17/18 [Rx] Lactulose 20 gm PO BID #1 bottle 09/18/18 [Rx] Sodium Bicarbonate 650 mg PO DAILY 10/10/18 [History] 0.9 % Sodium Chloride 100 ml IVC .Q10H ivbag 10/14/18 [Rx] Acetaminophen [Tylenol] 650 mg PO Q4HR PRN tablet 10/14/18 [Rx] Enoxaparin [Lovenox] 40 mg SQ 0600 syringe 10/14/18 [Rx] Levofloxacin 750 MG/150 ML [Levaquin Premix 750mg/150 mL] 750 mg IVPB DAILY #7 bag 10/14/18 [Rx] Losartan [Cozaar] 100 mg PO DAILY tablet 10/14/18 [Rx] Potassium Chloride 20 meq PO BID tab.er.prt 10/14/18 [Rx] Tamsulosin [Flomax] 0.8 mg PO HS capsule 10/14/18 [Rx] amLODIPine [Norvasc] 10 mg PO DAILY tablet 10/14/18 [Rx] hydrALAZINE [HydrALAZINE] 25 mg PO Q8HR tablet 10/14/18 [Rx] Allergies/Adverse Reactions: Allergy/AdvReac Type Severity Reaction Status Date / Time [id number] Reductase Allergy See Verified 09/18/18 09:27 Inhibitor Comments [Statins] Date of admission: 10/12/18 07:30 Primary care physician: Brennan Dinh MD Consults: 10/10/18 11:54 Consult to Export Coordinator [CONS] Routine Reason for SW Consult: discharge planning 10/12/18 07:34 Consult to Occupational Therapy [CONS] Routine Comment: Evaluate, develop and implement POC Reason for Consult: Extreme weakness after chemotherapy Does patient have active BEDREST order?: No Is patient medically & hemodynamically stable?: Yes Patient assessed for mobility or mobilized this visit?: No Consult to Physical Therapy [CONS] Routine Comment: Evaluate, develop and implement POC Reason for Consult: Extreme weakness and inability to walk after chemotherapy Does patient have active BEDREST order?: No Is patient medically & hemodynamically stable?: Yes Patient assessed for mobility or mobilized this visit?: No 10/13/18 19:03 Consult to Psychology [CONS] Routine Consulting Provider: Reny Gatica Reason for Consult: Depression Call Completed: Yes Discharging clinician: Brennan Dinh Anticipated date of discharge: 10/14/18 - Constitutional Vitals: Temp Pulse Resp BP Pulse Ox 97.4 F L 65 17 150/70 92 10/14/18 03:46 10/14/18 03:46 10/14/18 03:46 10/14/18 03:46 10/14/18 03:46 General appearance: Present: cachectic, A&O X 2 (He knows where he is, he knew my name. He thought he had been in the hospital for 2 weeks. He did not know the day of the week), pleasant, no acute distress, loss of weight - Respiratory Additional comments: Crackles are heard in the right mid and upper lung marsh. He has a moist congested cough today. - Cardiovascular Cardiovascular exam: Present: RRR, +S1, +S2 - GI/Abdominal GI/Abdominal exam: Present: soft. Absent: hepatomegaly, mass, splenomegaly, tenderness - Extremities Exam Extremities exam: Absent: calf tenderness, pedal edema, tenderness - Patient Status Disposition: Transfer Other Condition: Fair Functional capacity at discharge: bed bound Overall status at discharge: patient is not back to baseline - Discharge Instructions Follow Up With: Brennan Dinh MD [Primary Care Provider] - - VTE Documentation of Mechanical Device: Graduated compression elastic hosiery
[2018-10-14] MEDS: Acetaminophen 325 MG TABLET PO PRN (09:06)
[2018-10-14 09:14] VITALS: BP 158/73
--- NOTE | 2018-10-14 18:07 | Electrocardiograph Report ---
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
== END 2018-10-14 11:10 | disposition other institution (70) | DRG 180 ==
LOC: INPGRE 08:02 → EMEROOGRE 08:02 → INPGRE 11:13
PROVIDERS: ADMIT Family Medicine; ATTEND Family Medicine